=== PATIENT | male | born 1960 | race Caucasian/White ===

== ENCOUNTER → 2021-05-22 17:32 | Outpatient (CLI) | payer OTHER, SELFPAY ==
[2021-05-22 18:08] LABS: COVID19 -Nasal RAPID POSITIVE (Negative)
== END ==
PROVIDERS: PCP Family Medicine; Referring Provider Nurse Practitioner Family; Visit Provider Nurse Practitioner Family
DX: U07.1 COVID-19 (principal)
CPT/HCPCS: 87635

== ENCOUNTER → 2021-05-31 07:51 | Outpatient (CLI) | payer OTHER, SELFPAY ==
[2021-05-31 09:04] LABS: Add Manual Diff / Slide Review NO; Basophils Absolute Auto 0 /uL (0-100); Basophils Percent Auto 0.2 % (0-2); Eosinophils Absolute Auto 200 /uL (0-450); Eosinophils Percent Auto 1.7 % (2-4); Hematocrit 48.1 % (41-53); Hemoglobin 16.1 g/dL (13.5-17.5); Lymphocytes Absolute Auto 5300 /uL (1100-4500); Lymphocytes Percent Auto 55.3 % (25-40); Mean Corpuscular HGB Conc 33.4 % (30-36); Mean Corpuscular Hemoglobin 28.9 PG (26-34); Mean Corpuscular Volume 86.6 fL (80-100); Monocytes Absolute Auto 600 /uL (0-900); Monocytes Percent Auto 6.4 % (3-14); Neutrophils Absolute Auto 3500 /uL (1500-7000); Neutrophils Percent Auto 36.4 % (50-75); Platelet Count 310 X10^3/uL (150-400); Red Blood Cell Count 5.55 X10^6/uL (4.5-5.9); Red Cell Distribution Width 12.7 % (11.6-14.8); White Blood Cell Count 9.6 X10^3/uL (4.5-11.0)
[2021-05-31 09:08] LABS: Hemoglobin A1C% w Est Avg Glu 5.5 % (4.0-6.0)
[2021-05-31 09:51] LABS: Alanine Aminotransferase 35 IU/L (<50); Albumin 3.9 g/dL (3.5-5.0); Albumin Globulin Ratio 1.5 (1.0-2.8); Alkaline Phosphatase 90 U/L (38-126); Aspartate Aminotransferase 27 IU/L (17-59); BUN Creatinine Ratio 16.3 (6-22); Bilirubin Total 0.8 mg/dL (0.2-1.3); Blood Urea Nitrogen 16 mg/dL (9-20); Calcium 9.3 mg/dL (8.4-10.2); Carbon Dioxide 30 mmol/L (22-32); Chloride 105 mmol/L (98-107); Cholesterol 125 mg/dL (140-199); Estimated Glomerular Filt Rate > 60.0 mL/min (>60); Globulin 2.6 g/dL (1.7-4.1); Glucose 94 mg/dL (80-110); HDL Cholesterol 22 mg/dL (40-60); HEMOLYSIS < 15 (0-50); LDL Cholesterol Calculated 71 mg/dL (<100); Potassium 5.2 mmol/L (3.4-5.1); Sodium 141 mmol/L (137-145); Total Protein 6.5 g/dL (6.3-8.2); Triglycerides 162 mg/dL (35-150)
[2021-06-04 07:44] LABS: Percent Free Testosterone 2.53 % (1.50-4.20); Testosterone Free 15.15 ng/dL (5.00-21.00); Testosterone Total 598.7 ng/dL (264.0-916.0)
== END ==
PROVIDERS: PCP Family Medicine; Referring Provider Family Medicine; Visit Provider Family Medicine
DX: E78.2 Mixed hyperlipidemia (principal); G47.33 Obstructive sleep apnea (adult) (pediatric); I25.10 Atherosclerotic heart disease of native coronary artery without angina pectoris; Z12.5 Encounter for screening for malignant neoplasm of prostate; Z95.5 Presence of coronary angioplasty implant and graft; R79.89 Other specified abnormal findings of blood chemistry
CPT/HCPCS: 36415; 80053; 80061; 83036; 84402; 84403; 85025; G0103

== ENCOUNTER → 2024-01-14 11:21 | Outpatient (CLI) | payer MEDICARE, OTHER, SELFPAY ==
[2024-01-14 12:46] LABS: Add Manual Diff / Slide Review NO; Basophils Absolute Auto 0 /uL (0-100); Basophils Percent Auto 0.4 % (0-2); Eosinophils Absolute Auto 200 /uL (0-450); Eosinophils Percent Auto 2.3 % (2-4); Hematocrit 48.1 % (41-53); Hemoglobin 16.7 g/dL (13.5-17.5); Lymphocytes Absolute Auto 5900 /uL (1100-4500); Lymphocytes Percent Auto 64.7 % (25-40); Mean Corpuscular HGB Conc 34.7 % (30-36); Mean Corpuscular Hemoglobin 29.6 PG (26-34); Mean Corpuscular Volume 85.4 fL (80-100); Monocytes Absolute Auto 500 /uL (0-900); Monocytes Percent Auto 5.3 % (3-14); Neutrophils Absolute Auto 2500 /uL (1500-7000); Neutrophils Percent Auto 27.3 % (50-75); Platelet Count 224 X10^3/uL (150-400); Red Blood Cell Count 5.63 X10^6/uL (4.5-5.9); Red Cell Distribution Width 13.4 % (11.6-14.8); White Blood Cell Count 9.2 X10^3/uL (4.5-11.0)
[2024-01-14 13:00] LABS: HEMOLYSIS < 15 (0-50); Iron 145 ug/dL (49-181)
[2024-01-14 13:05] LABS: Alanine Aminotransferase 26 IU/L (<50); Albumin 4.1 g/dL (3.5-5.0); Albumin Globulin Ratio 1.6 (1.0-2.8); Alkaline Phosphatase 63 U/L (38-126); Aspartate Aminotransferase 22 IU/L (17-59); BUN Creatinine Ratio 19.5 (6-22); Blood Urea Nitrogen 17 mg/dL (9-20); Calcium 8.8 mg/dL (8.4-10.2); Carbon Dioxide 23 mmol/L (22-32); Chloride 111 mmol/L (98-107); Cholesterol 179 mg/dL (140-199); Estimated Glomerular Filt Rate > 60 mL/min (>60); Globulin 2.5 g/dL (1.7-4.1); Glucose 93 mg/dL (80-110); HDL Cholesterol 30 mg/dL (40-60); HEMOLYSIS < 15 (0-50); LDL Cholesterol Calculated 103 mg/dL (<100); Potassium 4.1 mmol/L (3.4-5.1); Sodium 141 mmol/L (137-145); Total Protein 6.6 g/dL (6.3-8.2); Triglycerides 232 mg/dL (35-150)
[2024-01-14 13:11] LABS: Percent Iron Saturation 42 % (20-50); Total Iron Binding Capacity 347 ug/dL (261-462); Transferrin 268 mg/dL (206-381)
[2024-01-14 13:31] LABS: TSH w/ Reflex to FT4 1.17 uIU/mL (0.47-4.68)
[2024-01-14 13:51] LABS: Vitamin B12 344 pg/mL (239-931)
== END ==
PROVIDERS: PCP Family Medicine; Referring Provider Physician Assistant; Visit Provider Physician Assistant
DX: E78.5 Hyperlipidemia, unspecified (principal); I25.10 Atherosclerotic heart disease of native coronary artery without angina pectoris; G47.33 Obstructive sleep apnea (adult) (pediatric); R53.83 Other fatigue; Z12.5 Encounter for screening for malignant neoplasm of prostate; Z95.5 Presence of coronary angioplasty implant and graft
CPT/HCPCS: 36415; 80053; 80061; 82607; 83540; 83550; 84402; 84403; 84443; 85025; G0103

== ENCOUNTER → 2024-01-21 11:52 | Outpatient (CLI) | payer MEDICARE, OTHER, SELFPAY ==
--- NOTE | 2024-01-21 11:53 | DI.US.S_ITS ---
PROCEDURE: US CAROTID DOPPLER BI INDICATIONS: CAD TECHNIQUE: Color and pulse Doppler interrogation was performed of both carotid systems, with image documentation and velocity measurements. COMPARISON: None. FINDINGS: Stenosis calculations are based on SRU (Society of Radi[employer] in Ultrasound) criteria. Right side: Brachial blood pressure: 129/78 mm Hg. Common carotid artery peak systolic velocity: 106 cm/sec. Internal carotid artery peak systolic velocity: 107 cm/sec. Internal carotid artery end diastolic velocity: 17 cm/sec. External carotid artery peak systolic velocity: 109 cm/sec. ICA/CCA peak systolic ratio: 1.0. Villalba scale imaging description: Mild atheromatous plaque at the carotid bifurcation. Percent internal carotid artery stenosis: Less than 50% stenosis. Vertebral artery: Flow direction is antegrade. Left side: Brachial blood pressure: 127/74 mm Hg. Common carotid artery peak systolic velocity: 92 cm/sec. Internal carotid artery peak systolic velocity: 82 cm/sec. Internal carotid artery end diastolic velocity: 27 cm/sec. External carotid artery peak systolic velocity: 109 cm/sec. ICA/CCA peak systolic ratio: 0.7. Villalba scale imaging description: Mild atheromatous plaque at the carotid bifurcation Percent internal carotid artery stenosis: Less than 50% stenosis. Vertebral artery: Flow direction is antegrade. IMPRESSION: Less than 50% stenosis of the bilateral internal carotid arteries. Dictated by: Farnaz Blackburn M.D. on 01/21/2024 at 12:40 Approved by: Farnaz Blackburn M.D. on 01/21/2024 at 12:45
== END ==
PROVIDERS: PCP Family Medicine; Referring Provider Physician Assistant; Visit Provider Physician Assistant
DX: I25.10 Atherosclerotic heart disease of native coronary artery without angina pectoris (principal); I65.23 Occlusion and stenosis of bilateral carotid arteries; R53.83 Other fatigue; E78.5 Hyperlipidemia, unspecified; Z95.5 Presence of coronary angioplasty implant and graft
CPT/HCPCS: 93880

== ENCOUNTER 2024-04-19 13:34 | Day surgery (SDC) | payer MEDICARE, OTHER, SELFPAY ==
[2024-04-19] MEDS: LACTATED RINGERS 1,000 ML 42 ML IV (14:08)
[2024-04-19 14:18] VITALS: BP 140/86; PULSE 84; RESP 17; TEMP 35.8; O2SAT 95
--- NOTE | 2024-04-19 15:08 | PM.HP.1 ---
History of Present Illness History of Present Illness Date Patient Seen: 04/19/24 Time Patient Seen: 15:08 Chief complaint: Colonoscopy Narrative: 64-year-old man here for screening colonoscopy. Last colonoscopy 2012. No family history of colon cancer. No abdominal concerns today. [facility] Medical History Erectile dysfunction COVID-19 Somatic dysfunction of lower extremity Acute pain of left knee Obstructive sleep apnea Hyperlipidemia Presence of stent in coronary artery in patient with coronary artery disease Social History Smoking Status: Never smoker alcohol intake: current Meds Home Medications and Allergies Home Medications Medication Instructions Recorded Confirmed Type aspirin 81 mg tablet,delayed 81 mg PO DAILY 03/07/21 04/19/24 History release (Adult Low Dose Aspirin) atorvastatin 80 mg tablet 80 mg PO DAILY 05/22/21 04/19/24 History magnesium 100 mg tablet 100 mg PO DAILY 01/14/24 04/19/24 History Allergies Allergy/AdvReac Type Severity Reaction Status Date / Time No Known Drug Allergies Allergy Verified 04/19/24 14:09 Exam Vital Signs (past 8 hours): - 04/19/24 14:18 Temperature 96.5 F L Pulse Rate 84 Respiratory Rate 17 Blood Pressure 140/86 Pulse Oximetry 95 Oxygen Delivery Method Room Air Oxygen Delivery Method Room Air Narrative Exam Narrative: General adult man alert oriented no acute distress Chest nonlabored respiration Extremities warm well perfused Assessment & Plan Assessment & Plan narrative: The patient requires colorectal screening and colonoscopy is recommended. Technical details were discussed. Risks, benefits, alternatives explained. Risks including but not limited to myocardial infarction, aspiration, bleeding, pain, missed lesion, incomplete examination, need for further radiographic studies, intestinal injury, and need for major abdominal surgery were discussed. All questions were answered to their satisfaction, and they are in agreement with this plan. Time-Based Coding :: [TOTAL MINUTES] spent with patient and on the chart (including review of chart, obtaining history, exam, reviewing outside data, placing orders, documenting exam and treatment plan, and counseling patient) on [DATE].
[2024-04-19 15:29] VITALS: BP 112/52; PULSE 70; RESP 14; TEMP 36.4; O2SAT 94
[2024-04-19 15:34] VITALS: BP 112/65; PULSE 68; RESP 15; TEMP 36.4; O2SAT 95
--- NOTE | 2024-04-19 15:34 | P.OP.COLON_ITS ---
Operative Date/Time/Diagnoses Date of procedure: 04/19/24 Time of procedure: 15:34 Pre-op diagnosis: Screening colonoscopy Procedure & Clinicians Study performed: Screening colonoscopy Same procedure as scheduled: Yes Indications: Screening Surgeon: Murray Seaman Procedure Notes Procedure in detail: The history and physical was performed/updated and the patient is ASA class is 2. The procedure was discussed in detail with the patient. Potential risks complications including infection, bleeding, missed diagnosis, perforation, need for surgery, and were explained. Their questions were answered and informed consent was obtained. Patient was brought to the procedure room and placed standard monitoring equipment. The patient's vital signs were monitored continuously throughout the entire procedure. Prior to starting time-out was performed. The patient was placed in the left lateral recumbent position. Procedural sedation was administered by anesthesia. Examination began with a thorough inspection of the perianal area there was no evidence of fissures, fistulae, external hemorrhoids or cutaneous malignancy. The colonoscopy scope was then placed into the anal canal and was advanced to the cecum, which was identified by the ileocecal valve , the appendiceal orifice and the confluence of the taenia. The scope was then slowly withdrawn examining colon thoroughly in all directions, irrigating it of any residual stool. The scope was retroflexed within the rectum The patient tolerated the procedure well. They will be discharged once criteria are met. The prep was of good/excellent quality. The withdrawl time was 7 minutes. FINDINGS * Unremarkable colonoscopy. Normal healthy colonic mucosa without mass or polyps. Specimen(s): none sent Post-procedure Recommendations: Colonoscopy in 10 years Disposition: same day surgery
[2024-04-19 15:40] VITALS: BP 115/69; PULSE 70; RESP 18; TEMP 36.3; O2SAT 97
== END 2024-04-19 15:53 | disposition home or self-care (01) ==
PROVIDERS: PCP Family Medicine; Referring Provider Surgery; Visit Provider Surgery
PROC: 0DJD8ZZ Inspection of Lower Intestinal Tract, Via Natural or Artificial Opening Endoscopic (ICD-10-PCS; CPT 45378; principal; 2024-04-19 15:00)
DX: Z12.11 Encounter for screening for malignant neoplasm of colon (principal)
CPT/HCPCS: G0121; J2704

== ENCOUNTER → 2024-11-24 09:46 | Outpatient (CLI) | payer MEDICARE, OTHER, SELFPAY ==
[2024-11-24 12:48] LABS: Alanine Aminotransferase 25 IU/L (<50); Albumin 3.8 g/dL (3.5-5.0); Albumin Globulin Ratio 1.6 (1.0-2.8); Alkaline Phosphatase 56 U/L (38-126); Aspartate Aminotransferase 22 IU/L (17-59); Bilirubin Total 0.9 mg/dL (0.2-1.3); Blood Urea Nitrogen 13 mg/dL (9-20); Calcium 8.9 mg/dL (8.4-10.2); Carbon Dioxide 24 mmol/L (22-32); Chloride 107 mmol/L (98-107); Cholesterol 178 mg/dL (140-199); Estimated Glomerular Filt Rate > 60 mL/min (>60); Globulin 2.4 g/dL (1.7-4.1); Glucose 95 mg/dL (80-110); HDL Cholesterol 27 mg/dL (40-60); HEMOLYSIS < 15 (0-50); LDL Cholesterol Calculated 110 mg/dL (<100); Potassium 4.4 mmol/L (3.4-5.1); Sodium 137 mmol/L (137-145); Total Protein 6.2 g/dL (6.3-8.2); Triglycerides 204 mg/dL (35-150)
== END ==
PROVIDERS: PCP Family Medicine; Referring Provider Nurse Practitioner; Visit Provider Nurse Practitioner
DX: E78.5 Hyperlipidemia, unspecified (principal); E87.5 Hyperkalemia
CPT/HCPCS: 36415; 80053; 80061

== ENCOUNTER → 2025-05-05 09:31 | Outpatient (CLI) | payer MEDICARE, OTHER, SELFPAY ==
[2025-05-05 10:11] LABS: Add Manual Diff / Slide Review NO; Hematocrit 49.9 % (41-53); Hemoglobin 16.9 g/dL (13.5-17.5); Lymphocytes Absolute Auto 5800 /uL (1100-4500); Mean Corpuscular HGB Conc 33.9 % (30-36); Mean Corpuscular Hemoglobin 28.0 PG (26-34); Mean Corpuscular Volume 82.6 fL (80-100); Platelet Count 223 X10^3/uL (150-400)
[2025-05-05 10:40] LABS: Alanine Aminotransferase 18 IU/L (<50); Albumin 3.9 g/dL (3.5-5.0); Albumin Globulin Ratio 1.4 (1.0-2.8); Alkaline Phosphatase 86 U/L (38-126); Blood Urea Nitrogen 18 mg/dL (9-20); Calcium 9.3 mg/dL (8.4-10.2); Carbon Dioxide 23 mmol/L (22-32); Chloride 107 mmol/L (98-107); Cholesterol 94 mg/dL (140-199); Estimated Glomerular Filt Rate > 60 mL/min (>60); Globulin 2.7 g/dL (1.7-4.1); Glucose 103 mg/dL (70-99); HDL Cholesterol 27 mg/dL (40-60); HEMOLYSIS < 15 (0-50); Potassium 4.5 mmol/L (3.4-5.1); Sodium 138 mmol/L (137-145); Total Protein 6.6 g/dL (6.3-8.2); Triglycerides 165 mg/dL (35-150)
[2025-05-05 11:06] LABS: TSH w/ Reflex to FT4 1.66 uIU/mL (0.47-4.68)
[2025-05-05 11:08] LABS: Microalbumi Creatinin Ratio Ur 3.0 ug/mg CR (<30)
[2025-05-05 13:21] LABS: RBC Morphology Normal Morphology
== END ==
LOC: LAB 09:38
PROVIDERS: PCP Family Medicine; Referring Provider Family Medicine; Visit Provider Family Medicine
DX: E78.2 Mixed hyperlipidemia (principal); Z12.5 Encounter for screening for malignant neoplasm of prostate; I73.9 Peripheral vascular disease, unspecified; I25.10 Atherosclerotic heart disease of native coronary artery without angina pectoris; Z95.1 Presence of aortocoronary bypass graft; Z95.5 Presence of coronary angioplasty implant and graft
CPT/HCPCS: 36415; 80053; 80061; 82043; 82570; 84443; 85025; G0103

== ENCOUNTER → 2025-05-10 10:20 | Outpatient (CLI) | payer MEDICARE, OTHER, SELFPAY ==
--- NOTE | 2025-05-10 10:21 | DI.CT.S_ITS ---
PROCEDURE: CT ANGIO ABD AORTA RUNOFF INDICATIONS: ATHEROSCLEROSIS OF [place] ARTERIES OF EXTREMETIES TECHNIQUE: After the administration of intravenous contrast, 2.5 mm sections acquired from T12 to the feet, with optional delayed image acquisition from the knees to the feet. 3-dimensional maximum intensity projection (MIP) coronal and sagittal reformats, and/or 3-dimensional volume rendering reformatting was then performed. For radiation dose reduction, the following was used: automated exposure control. COMPARISON: None. FINDINGS: Image Quality: Mildly suboptimal due to motion artifact. Abdominal aorta: Mild atherosclerotic disease without significant stenosis. Splanchnic vessels: Narrowing of the celiac axis with mild poststenotic fusiform dilation, measuring 8 mm. Right lower extremity: Short segment of less than 25% narrowing of the distal external iliac artery. Long segment of 25-50% narrowing of the common femoral artery. Greater than 75% narrowing of the proximal superficial femoral artery, with occlusion disc distal to this region, with bulky calcifications extending to the distal femoral artery. There is reconstitution of the distal femoral artery from deep perforating vessels, with 25% to 50% narrowing extending into the popliteal fossa. Less than 25% narrowing, tandem, long segments of the popliteal artery. Extensive calcifications of the posterior tibial artery. Three-vessel runoff. Left lower extremity: Moderate segment 25% narrowing of the distal external iliac artery. Long segment of 50-75% narrowing of the common femoral artery. Early occlusion of the superficial femoral artery, with reconstitution in the distal segment. Tandem, short segments of less than 25% narrowing of the popliteal artery. Extensive atherosclerotic calcifications of the posterior tibial artery, which is patent at the ankle. Remaining calf vessels are patent. Lower Chest: No significant findings. ABDOMEN: Liver: No solid mass. Gallbladder: No radiopaque gallstones or wall thickening. Biliary ducts: No biliary dilation. Pancreas: No ductal dilation. Spleen: Size is within normal limits. Adrenal Glands: No adrenal nodules. Kidneys and Ureters: No hydronephrosis. No solid mass. No complex renal cystic lesion which requires follow up. Stomach and Bowel: Normal colonic caliber, without significant wall thickening. Colonic diverticulosis without evidence of diverticulitis. Peritoneum: No abnormal intraperitoneal fluid. No free air. Ventral Wall: No hernia. Abdominal Nodes: No retroperitoneal or mesenteric adenopathy by size criteria. Vessels: Aorta and inferior vena cava are normal in size. PELVIS: Pelvic Organs: Prostate is enlarged. Bladder: Unremarkable. Pelvic Nodes: No enlarged lymph nodes. Miscellaneous: Moderate inguinal hernias containing fat. Bones: No aggressive osseous abnormality. IMPRESSION: Extensive atherosclerotic disease: On the right, there is occlusion of the proximal superficial femoral artery, with reconstitution at the distal superficial femoral artery from deep perforating vessels. Three-vessel runoff. On the left, there is occlusion of the proximal superficial femoral artery, with reconstitution of the distal superficial femoral artery from deep perforating vessels. The posterior tibial artery contains heavy calcifications, but is patent at the ankle. Remaining calf vessels are patent at the ankle. Bulky calcification of the distal external iliac artery/common femoral artery, left greater than right. 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 Correlate with symptoms. Dictated by: Gordon Jones M.D. on 05/10/2025 at 11:39 Approved by: Gordon Jones M.D. on 05/10/2025 at 11:53
== END ==
LOC: CT 10:21
PROVIDERS: PCP Family Medicine; Referring Provider Surgery Vascular Surgery; Visit Provider Surgery Vascular Surgery
DX: I70.213 Atherosclerosis of native arteries of extremities with intermittent claudication, bilateral legs (principal); K57.90 Diverticulosis of intestine, part unspecified, without perforation or abscess without bleeding; N40.0 Benign prostatic hyperplasia without lower urinary tract symptoms; K40.90 Unilateral inguinal hernia, without obstruction or gangrene, not specified as recurrent
CPT/HCPCS: 75635; Q9967

== ENCOUNTER 2025-07-09 21:46 | Emergency (ER) | payer MEDICARE, OTHER, SELFPAY ==
[2025-07-09 21:59] VITALS: PULSE 94; RESP 17; O2SAT 96
[2025-07-09 22:00] VITALS: BP 120/69; PULSE 93; RESP 24; O2SAT 95
[2025-07-09 22:02] VITALS: BP 135/65; PULSE 96; RESP 16; TEMP 38; O2SAT 96; BMI 31.5
--- NOTE | 2025-07-09 22:13 | DI.US.S_ITS ---
PROCEDURE: US PERIPH VENOUS LOW EXTREM RT INDICATIONS: RLE pain/swelling, recent bilat fem-pop TECHNIQUE: Real-time imaging, as well as color and pulse Doppler interrogation, were performed of the lower extremity deep veins from the inguinal ligament to the popliteal fossa, with documentation of the visualized calf veins. COMPARISON: [facility], CT, CT ANGIO ABD AORTA RUNOFF, 05/10/2025, 10:32. FINDINGS: The common femoral, femoral, popliteal, and the visualized calf veins are normally compressible, and free of intraluminal thrombus. Color and pulse Doppler demonstrate normal phasic intraluminal flow. There is normal augmentation response to distal compression maneuver. Fluid collection posterior to the bypass scar measuring approximately 10.6 cm. Bypass appears patent. IMPRESSION: No findings of lower extremity deep venous thrombosis. Fluid collection posterior to bypass scar. This may represent hematoma or potentially abscess. Dictated by: Cheli Ray M.D. on 07/09/2025 at 23:08 Approved by: Cheli Ray M.D. on 07/09/2025 at 23:12
[2025-07-09 22:24] LABS: Add Manual Diff / Slide Review NO; Hematocrit 37.1 % (41-53); Hemoglobin 12.4 g/dL (13.5-17.5); Lymphocytes Absolute Auto 2700 /uL (1100-4500); Mean Corpuscular HGB Conc 33.4 % (30-36); Mean Corpuscular Hemoglobin 26.8 PG (26-34); Mean Corpuscular Volume 80.2 fL (80-100); Platelet Count 319 X10^3/uL (150-400)
[2025-07-09 22:29] LABS: INR 1.1 (0.9-1.3); Prothrombin Time 12.2 SECONDS (9.4-12.5)
[2025-07-09 22:35] LABS: Alanine Aminotransferase 19 IU/L (<50); Albumin 3.7 g/dL (3.5-5.0); Albumin Globulin Ratio 1.3 (1.0-2.8); Alkaline Phosphatase 94 U/L (38-126); Blood Urea Nitrogen 13 mg/dL (9-20); Calcium 8.6 mg/dL (8.4-10.2); Carbon Dioxide 21 mmol/L (22-32); Chloride 108 mmol/L (98-107); Estimated Glomerular Filt Rate > 60 mL/min (>60); Globulin 2.8 g/dL (1.7-4.1); Glucose 146 mg/dL (70-99); HEMOLYSIS < 15 (0-50); Lactate (Lactic Acid) 1.4 mmol/L (0.7-2.1); Potassium 3.8 mmol/L (3.4-5.1); Sodium 139 mmol/L (137-145); Total Protein 6.5 g/dL (6.3-8.2)
[2025-07-09 23:00] VITALS: BP 124/63; PULSE 86; RESP 16; O2SAT 96
[2025-07-09] MEDS: VANCOMYCIN 2,000 MG/400 ML PIGGYBACK 200 MG IV (23:02)
--- NOTE | 2025-07-09 23:02 | ED.EXTPRO ---
HPI - Extremity Problem General Chief complaint: Extremity Problem,Nontraumatic Stated complaint: post op rt leg problems Time Seen by Provider: 07/09/25 21:48 Source: patient Mode of arrival: Wheelchair History of Present Illness HPI Narrative: 65-year-old male with CAD status post CABG, history of PAD status post left then right femoral artery bypass grafting, complains of three days duration right thigh pain and swelling, feeling feverish tonight. Patient recalls 4 vessel CABG procedure done in [place] December 2024, during post-CABG cardiac rehab developed bilateral calf pain, had podiatry consultation, suspected PAD, referred to vascular surgery, CTA showed bilateral femoral artery occlusions, on 05/22/2025 had left fem-bypass arterial procedure [place] Dr. Rios Pruitt vascular surgeon, had 06/23/2025 right fem-bypass same surgeon. He recalls having a left-sided large hematoma that was treated medically, never drained, resorbed. He now has 3 days duration of similar swelling to the right distal graft, not quite as big as his left-sided hematoma, but more painful, having chills and fever 9:00 p.m. tonight. Denies chest pain shortness of breath. Not currently on antibiotics. Had previously been on Eliquis which had been held, was due to start Pradaxa oral anticoagulation soon. Denies trauma new activities, rehab exercises have been largely upper extremity oriented. Local PCP Dr Garcia. Related Data Home Medications ?Medication ?Instructions ?Recorded ?Confirmed aspirin 81 mg tablet,delayed 81 mg PO DAILY 03/07/21 05/16/25 release (Adult Low Dose Aspirin) magnesium 100 mg tablet 100 mg PO DAILY 01/14/24 05/16/25 apixaban 5 mg tablet 5 mg PO BID 04/13/25 05/16/25 atorvastatin 40 mg tablet 40 mg PO DAILY 04/13/25 05/16/25 cholecalciferol (vitamin D3) 125 125 mcg PO DAILY 04/13/25 05/16/25 mcg (5,000 unit) capsule cyanocobalamin (vitamin B-12) 1,000 mcg PO DAILY 04/13/25 05/16/25 1,000 mcg tablet ezetimibe 10 mg tablet 10 mg PO DAILY 04/13/25 05/16/25 metoprolol tartrate 25 mg tablet 25 mg PO BID 04/13/25 05/16/25 Previous Rx's ?Medication ?Instructions ?Recorded nitroglycerin 0.4 mg sublingual 0.4 mg sublingual Q5M PRN chest 04/13/25 tablet pain #30 tabs cephalexin 500 mg capsule 500 mg PO QID 7 days #28 caps 07/10/25 cephalexin 500 mg capsule 500 mg PO QID 7 days #28 caps 07/10/25 oxycodone-acetaminophen 5 mg-325 1 tab PO Q6H PRN pain #10 tabs 07/10/25 mg tablet Allergies Allergy/AdvReac Type Severity Reaction Status Date / Time No Known Drug Allergies Allergy Verified 07/09/25 22:02 Patient History Medical History (Updated 07/10/25 @ 01:46 by Stefan Miller MD) Atrial fibrillation with RVR Pulmonary emboli Peripheral vascular disease of extremity with claudication Erectile dysfunction COVID-19 Somatic dysfunction of lower extremity Acute pain of left knee Obstructive sleep apnea Hyperlipidemia Presence of stent in coronary artery in patient with coronary artery disease Social History Smoking Status: Never smoker alcohol intake: current Smoking Status: Never smoker alcohol intake frequency: a few times a month Exam Narrative Exam Narrative: GENERAL: Well-developed patient, in mild distress. HEAD: Atraumatic. Normocephalic. EYES: Pupils equal round. Extraocular motions intact. No scleral icterus. No injection or drainage. ENT: Nose without bleeding, purulent drainage. Throat without erythema, tonsillar hypertrophy or exudate. Airway patent. NECK: Trachea midline. Moves neck well. CARDIOVASCULAR: Regular rate and rhythm without murmurs, gallops, or rubs. RESPIRATORY: Clear to auscultation. Breath sounds equal bilaterally. No wheezes, rales, or rhonchi. GASTROINTESTINAL: Abdomen soft, non-tender, nondistended. EXTREMITIES: Healing scars left groin and left medial thigh, without redness or warmth. Healing scars right groin and right medial thigh with some swelling non fluctuance noncrepitant, slight warmth. No expressible fluid. DP pulses palpable distal, with good perfusion bilateral toes. BACK: Nontender without deformity or crepitance. No flank tenderness. NEURO: AOx3. Motor functions grossly nonfocal. SKIN: No rash or erythema of visible areas Initial Vital Signs Initial Vital Signs: Vital Signs Pulse Rate 94 H 07/09/25 21:59 Respiratory Rate 17 07/09/25 21:59 Pulse Oximetry 96 07/09/25 21:59 Course Orders Ordered: ED Orders 07/09/25 22:10 CBC Auto Diff [Complete Blood Count AUTO DIFF] Stat CMP [Comprehensive Metabolic Panel] Stat Lactate (Lactic Acid) Stat Prothrombin Time INR Stat 07/09/25 22:13 US periph venous low extrem rt Stat 07/09/25 22:15 Blood Culture Stat 07/09/25 23:19 CT angio abd aorta runoff Stat Discontinued Medications Hydromorphone HCl (Hydromorphone Hcl 0.5 Mg/0.5 Ml Syringe) 0.5 mg IV NOW ONE Stop: 07/09/25 23:54 Last Admin: 07/10/25 00:02 Dose: 0.5 mg Documented By: ANGELIA Vancomycin HCl/Dextrose (Vancomycin) 2,000 mg in 400 mls @ 200 mls/hr IV NOW ONE Stop: 07/10/25 00:33 Last Infusion: 07/10/25 01:25 Dose: Infused Documented By: Admin: 07/09/25 23:02 Dose: 200 mls/hr Documented By: LOLITA Sodium Chloride (Normal Saline 0.9%) 1,000 mls @ 1,000 mls/hr IV BOLUS ONE Stop: 07/10/25 00:18 Last Infusion: 07/10/25 01:24 Dose: Infused Documented By: Admin: 07/09/25 23:39 Dose: 1,000 mls/hr Documented By: ANGELIA Ondansetron HCl (Ondansetron 4 Mg/2 Ml Inj) 4 mg IV NOW ONE Stop: 07/09/25 23:55 Last Admin: 07/10/25 00:02 Dose: 4 mg Documented By: ANGELIA Oxycodone/Acetaminophen (Oxycodone/Apap 5/325 Prepack) 1 bottle MISC DIRECTED ONE Stop: 07/10/25 02:06 Last Admin: 07/10/25 02:08 Dose: 1 bottle Documented By: ANGELIA Oxycodone/Acetaminophen (Oxycodone/Acetaminophen 5/325 Tablet) 1 tab PO NOW ONE Stop: 07/10/25 02:06 Last Admin: 07/10/25 02:08 Dose: 1 tab Documented By: ANGELIA Vital Signs Vital signs: Vital Signs - 8 hr 07/09/25 21:59 07/09/25 22:00 07/09/25 22:00 Temperature Pulse Rate 94 H 93 H Respiratory Rate 17 24 Blood Pressure 120/69 Pulse Oximetry 96 95 Oxygen Delivery Method Room Air 07/09/25 22:02 07/09/25 23:00 07/09/25 23:00 Temperature 100.4 F H Pulse Rate 96 H 86 Respiratory Rate 16 16 Blood Pressure 135/65 124/63 Pulse Oximetry 96 96 Oxygen Delivery Method Room Air Room Air 07/09/25 23:30 07/09/25 23:30 07/09/25 23:46 Temperature Pulse Rate 83 Respiratory Rate 23 Blood Pressure 110/58 L 121/61 Pulse Oximetry 96 Oxygen Delivery Method Room Air 07/09/25 23:46 07/10/25 00:00 07/10/25 00:00 Temperature Pulse Rate 84 81 Respiratory Rate 25 H Blood Pressure 120/61 Pulse Oximetry 95 95 Oxygen Delivery Method Room Air 07/10/25 00:30 07/10/25 00:31 07/10/25 00:31 Temperature Pulse Rate 78 78 Respiratory Rate 24 24 Blood Pressure 103/54 L Pulse Oximetry 92 93 Oxygen Delivery Method 07/10/25 01:00 07/10/25 01:00 07/10/25 01:30 Temperature 98.6 F Pulse Rate 77 Respiratory Rate 20 Blood Pressure 108/59 L 104/50 L Pulse Oximetry 92 Oxygen Delivery Method Room Air 07/10/25 01:30 Temperature Pulse Rate 79 Respiratory Rate 24 Blood Pressure Pulse Oximetry 94 Oxygen Delivery Method Room Air MDM - Extremity (Nontraumatic) Lab Data Attestation: I reviewed the patient's lab results. Lab results narrative: White blood cell count 23329, hemoglobin 12.4, platelets adequate. Glucose 146. Renal function normal. Electrolytes normal. Serum CO2 21 slightly decreased. Liver functions normal. Lactate normal. 07/09/25 22:10 07/09/25 22:10 Labs: Lab Results 07/09/25 Range/Units 22:10 WBC 12.0 H (4.5-11.0) X10^3/uL RBC 4.62 (4.5-5.9) X10^6/uL Hgb 12.4 L (13.5-17.5) g/dL Hct 37.1 L (41-53) % MCV 80.2 (80-100) fL MCH 26.8 (26-34) PG MCHC 33.4 (30-36) % RDW 14.1 (11.6-14.8) % Plt Count 319 (150-400) X10^3/uL Neut % (Auto) 67.5 (50-75) % Lymph % (Auto) 22.7 L (25-40) % [place] % (Auto) 7.4 (3-14) % Eos % (Auto) 1.8 L (2-4) % Baso % (Auto) 0.6 (0-2) % Neut # (Auto) 8100 H (7401-3977) /uL Lymph # (Auto) 2700 (4336-7253) /uL [place] # (Auto) 900 (0-900) /uL Eos # (Auto) 200 (0-450) /uL Baso # (Auto) 100 (0-100) /uL PT 12.2 (9.4-12.5) SECONDS INR 1.1 (0.9-1.3) Sodium 139 (137-145) mmol/L Potassium 3.8 (3.4-5.1) mmol/L Chloride 108 H (98-107) mmol/L Carbon Dioxide 21 L (22-32) mmol/L BUN 13 (9-20) mg/dL Creatinine 0.81 (0.66-1.25) mg/dL Estimated GFR > 60 (>60) mL/min BUN/Creatinine Ratio 16.0 (6-22) Glucose 146 H (70-99) mg/dL Lactate 1.4 (0.7-2.1) mmol/L Calcium 8.6 (8.4-10.2) mg/dL Total Bilirubin 0.6 (0.2-1.3) mg/dL AST 22 (17-59) IU/L ALT 19 (<50) IU/L Alkaline Phosphatase 94 (38-126) U/L Total Protein 6.5 (6.3-8.2) g/dL Albumin 3.7 (3.5-5.0) g/dL Globulin 2.8 (1.7-4.1) g/dL Albumin/Globulin Ratio 1.3 (1.0-2.8) Imaging Data CT angiogram aortogram with right lower extremity runoff: Radiologist's Impression: [address] [address] [address] Scan Report Signed Patient: Ananda Zhao MR#: [id number] : 1960 Acct:[id number] Age/Sex: 65 / M Date of Service: 07/09/25 Loc: ED Accession Number: [id number] Procedure: CT angio abd aorta runoff Ordering Provider: Stefan Miller MD PROCEDURE: CT ANGIO ABD AORTA RUNOFF INDICATIONS: RLE infection/fluid on US, recent bypass arterial surgery TECHNIQUE: After the administration of intravenous contrast, 2.5 mm sections acquired from T12 to the feet, with optional delayed image acquisition from the knees to the feet. 3-dimensional maximum intensity projection (MIP) coronal and sagittal reformats, and/or 3-dimensional volume rendering reformatting was then performed. For radiation dose reduction, the following was used: automated exposure control. COMPARISON: [facility], CT, CT ANGIO ABD AORTA RUNOFF, 05/10/2025, 10:32. FINDINGS: Image Quality: Diagnostic. Abdominal aorta: Scattered atherosclerotic changes. No areas of hemodynamically significant stenosis, vascular occlusion or aneurysmal dilation. No dissection. Splanchnic vessels: Patent. Lower extremities: There is interval appearance of bypass stents bilaterally. They appear patent. Atherosclerotic calcification of the [place] vessels. There remains heavily calcified runoff vessels markedly diminutive. Slight appearance of increased flow is identified on the left. Bilateral groin fluid collections are identified presumably at the site of vascular access measuring 4.3 x 3.3 cm on the right and 1.2 x 1.5 cm on the left. There are fluid collections identified along the medial aspect of the right lower extremity immediately superior to the knee joint measuring 4.9 x 5.7 x 11.2 cm. Similar although smaller focus is identified on the left measuring 2.7 x 2.8 x 3.4 cm. All collections are hypodensity without evidence of contrast extravasation. Lower Chest: No significant findings. ABDOMEN: Liver: No solid mass. Gallbladder: No radiopaque gallstones or wall thickening. Biliary ducts: No biliary dilation. Pancreas: No ductal dilation. Spleen: Size is within normal limits. Adrenal Glands: No adrenal nodules. Kidneys and Ureters: No hydronephrosis. No solid mass. No complex renal cystic lesion which requires follow up. Stomach and Bowel: Normal colonic caliber, without significant wall thickening. Minimal colonic diverticula without inflammatory change. Peritoneum: No abnormal intraperitoneal fluid. No free air. Ventral Wall: No hernia. Abdominal Nodes: No retroperitoneal or mesenteric adenopathy by size criteria. Vessels: Aorta and inferior vena cava are normal in size. PELVIS: Pelvic Organs: Prostate gland is enlarged. Bladder: Unremarkable. Pelvic Nodes: No enlarged lymph nodes. Miscellaneous: Bilateral fat containing inguinal hernias are seen. Bones: No aggressive osseous abnormality. IMPRESSION: Interval bypass surgical changes as above. Bilateral fluid collections as described above presumably postsurgical seroma. There is no enhancement. There is no evidence of contrast extravasation to suggest active hemorrhage. Dictated by: Cheli Ray M.D. on 07/10/2025 at 0:15 Approved by: Cheli Ray M.D. on 07/10/2025 at 0:26 Venous Doppler right lower extremity: Radiologist's Impression: [place] [address] Ultrasound Report Signed Patient: Ananda Zhao MR#: [id number] : 1960 Acct:[id number] Age/Sex: 65 / M Date of Service: 07/09/25 Loc: ED Accession Number: [id number] Procedure: perip venous low extrem rt Ordering Provider: Stefan Miller MD PROCEDURE: US PERIPH VENOUS LOW EXTREM RT INDICATIONS: RLE pain/swelling, recent bilat fem-pop TECHNIQUE: Real-time imaging, as well as color and pulse Doppler interrogation, were performed of the lower extremity deep veins from the inguinal ligament to the popliteal fossa, with documentation of the visualized calf veins. COMPARISON: [facility], CT, CT ANGIO ABD AORTA RUNOFF, 05/10/2025, 10:32. FINDINGS: The common femoral, femoral, popliteal, and the visualized calf veins are normally compressible, and free of intraluminal thrombus. Color and pulse Doppler demonstrate normal phasic intraluminal flow. There is normal augmentation response to distal compression maneuver. Fluid collection posterior to the bypass scar measuring approximately 10.6 cm. Bypass appears patent. IMPRESSION: No findings of lower extremity deep venous thrombosis. Fluid collection posterior to bypass scar. This may represent hematoma or potentially abscess. Dictated by: Cheli Ray M.D. on 07/09/2025 at 23:08 Approved by: Cheli Ray M.D. on 07/09/2025 at 23:12 [facility] Narrative Medical decision making narrative: 65-year-old male with PAD having left fem bypass procedure May 2025, subsequent seroma treated nonsurgically, early June 2025 right fem bypass procedure, both at [facility] vascular surgery Dr Pruitt, now with nontraumatic pain swelling right thigh surgical site swelling without drainage, feverish with low-grade fever. DDx consider DVT, consider graft infection or deep space infection, seroma, abscess, other. IV vancomycin after blood cultures. Labs pending. Ultrasound right lower extremity ordered. Lab data: White blood cell count 77268, hemoglobin 12.4, platelets adequate. Glucose 146. Renal function normal. Electrolytes normal. Serum CO2 21 slightly decreased. Liver functions normal. Lactate normal. Ultrasound venous Doppler right lower extremity. IMPRESSION: No findings of lower extremity deep venous thrombosis. Fluid collection posterior to bypass scar. This may represent hematoma or potentially abscess. See radiology report. CT angiogram aorta with right lower extremity runoff. IMPRESSION: Interval bypass surgical changes as above. Bilateral fluid collections as described above presumably postsurgical seroma. There is no enhancement. There is no evidence of contrast extravasation to suggest active hemorrhage. See radiology report. Discussion of report results with patient/family, printed report provided. CT angiogram study reassuring, patent arterial vascular grafting, fluid collection characterized likely seroma, not described as suspected abscess changes, without enhancement, no extravasation or active hemorrhage suspected. Will consult with patient's vascular surgeon, to see if oral antibiotics advised, and timing of further postoperative vascular surgery clinic follow up. 0100, vascular surgery [facility] cross cover or Dr. Pruitt to be contacted for disposition planning. 0115, briefly attempted to present case to [facility] vascular surgery on-call Dr. Espino, who stated that they did not cover for the practice of Dr. Pruitt, and to contact Dr. Pruitt directly. 0140, case discussed with Dr. Pruitt who feels patient could be discharged home without any further antibiotics, he will contact the patient to arrange further follow up with him in clinic. Patient requesting pain medications, had been on oxycodone/APAP prior. Oral dose given now, home pack dispensed, prescription sent to requested pharmacy. Did send prescription also for Keflex dose, should patient have phone follow up later today with vascular surgery, perhaps with phone photos of the wound, if they should decide to start antibiotics after all, patient aware agrees with that plan. Discharge Plan Departure Patient Disposition: Home Clinical Impression: Seroma after procedure, Peripheral vascular disease Activity Restrictions/Additional Instructions: History of peripheral artery disease status post bilateral femoral artery bypass surgery by your vascular surgeon [facility]. Prior left-sided swelling treated without surgical interventions, fluid collection resorbed by the body. Now nontraumatic right-sided thigh area swelling of the area of previous surgery for the last 3 days. Feverishness today not otherwise explained. Initial IV vancomycin today given pending workup. Ultrasound did not show blood clots to the venous system of the right lower extremity. CT angiogram of the lower aorta into the pelvis down through the right leg, showed patent grafting, no leaking of blood, and small fluid collection seroma, not described as any abscess. Case was discussed with your vascular surgeon who felt that you did not need further antibiotics at this time. Advised that you follow up with him, he will contact you later today/tomorrow. If you have not heard from him by later today then tomorrow morning consider contacting him directly. He felt that you could start your Plavix anticoagulation medication as planned. Follow up with your vascular surgeon as above. Return to this/nearest emergency department for any change worsening symptoms or any concerns prior. Prescriptions: New oxycodone-acetaminophen 5-325 mg tablet 1 tab PO Q6H PRN (Reason: pain) Qty: 10 0RF cephalexin 500 mg capsule 500 mg PO QID 7 Days Qty: 28 0RF cephalexin 500 mg capsule 500 mg PO QID 7 Days Qty: 28 0RF No Action aspirin [Adult Low Dose Aspirin] 81 mg tablet,delayed release (DR/EC) 81 mg PO DAILY magnesium 100 mg tablet 100 mg PO DAILY atorvastatin 40 mg tablet 40 mg PO DAILY cyanocobalamin (vitamin B-12) 1,000 mcg tablet 1,000 mcg PO DAILY cholecalciferol (vitamin D3) 125 mcg (5,000 unit) capsule 125 mcg PO DAILY ezetimibe 10 mg tablet 10 mg PO DAILY metoprolol tartrate 25 mg tablet 25 mg PO BID apixaban 5 mg tablet 5 mg PO BID nitroglycerin 0.4 mg tablet, sublingual 0.4 mg sublingual Q5M PRN (Reason: chest pain) Qty: 30 3RF Rx Instructions: do not exceed 3 doses per episode Referrals: Jerad Garcia MD [Primary Care Provider, Family Practice] Stand Alone Forms: Patient Portal/API
--- NOTE | 2025-07-09 23:19 | DI.CT.S_ITS ---
PROCEDURE: CT ANGIO ABD AORTA RUNOFF INDICATIONS: RLE infection/fluid on US, recent bypass arterial surgery TECHNIQUE: After the administration of intravenous contrast, 2.5 mm sections acquired from T12 to the feet, with optional delayed image acquisition from the knees to the feet. 3-dimensional maximum intensity projection (MIP) coronal and sagittal reformats, and/or 3-dimensional volume rendering reformatting was then performed. For radiation dose reduction, the following was used: automated exposure control. COMPARISON: [facility], CT, CT ANGIO ABD AORTA RUNOFF, 05/10/2025, 10:32. FINDINGS: Image Quality: Diagnostic. Abdominal aorta: Scattered atherosclerotic changes. No areas of hemodynamically significant stenosis, vascular occlusion or aneurysmal dilation. No dissection. Splanchnic vessels: Patent. Lower extremities: There is interval appearance of bypass stents bilaterally. They appear patent. Atherosclerotic calcification of the redding vessels. There remains heavily calcified runoff vessels markedly diminutive. Slight appearance of increased flow is identified on the left. Bilateral groin fluid collections are identified presumably at the site of vascular access measuring 4.3 x 3.3 cm on the right and 1.2 x 1.5 cm on the left. There are fluid collections identified along the medial aspect of the right lower extremity immediately superior to the knee joint measuring 4.9 x 5.7 x 11.2 cm. Similar although smaller focus is identified on the left measuring 2.7 x 2.8 x 3.4 cm. All collections are hypodensity without evidence of contrast extravasation. Lower Chest: No significant findings. ABDOMEN: Liver: No solid mass. Gallbladder: No radiopaque gallstones or wall thickening. Biliary ducts: No biliary dilation. Pancreas: No ductal dilation. Spleen: Size is within normal limits. Adrenal Glands: No adrenal nodules. Kidneys and Ureters: No hydronephrosis. No solid mass. No complex renal cystic lesion which requires follow up. Stomach and Bowel: Normal colonic caliber, without significant wall thickening. Minimal colonic diverticula without inflammatory change. Peritoneum: No abnormal intraperitoneal fluid. No free air. Ventral Wall: No hernia. Abdominal Nodes: No retroperitoneal or mesenteric adenopathy by size criteria. Vessels: Aorta and inferior vena cava are normal in size. PELVIS: Pelvic Organs: Prostate gland is enlarged. Bladder: Unremarkable. Pelvic Nodes: No enlarged lymph nodes. Miscellaneous: Bilateral fat containing inguinal hernias are seen. Bones: No aggressive osseous abnormality. IMPRESSION: Interval bypass surgical changes as above. Bilateral fluid collections as described above presumably postsurgical seroma. There is no enhancement. There is no evidence of contrast extravasation to suggest active hemorrhage. Dictated by: Cheli Ray M.D. on 07/10/2025 at 0:15 Approved by: Cheli Ray M.D. on 07/10/2025 at 0:26
[2025-07-09 23:30] VITALS: BP 110/58; PULSE 83; RESP 23; O2SAT 96
--- NOTE | 2025-07-09 23:32 | PC.NURSE ---
Pt to imaging via ED stretcher with batch room technician
[2025-07-09] MEDS: SODIUM CHLORIDE 0.9% 1,000 ML 1000 ML IV (23:39)
[2025-07-09 23:46] VITALS: BP 121/61; PULSE 84; O2SAT 95
[2025-07-10] VITALS: BP 120/61; PULSE 81; RESP 25; O2SAT 95
[2025-07-10] MEDS: ONDANSETRON 4 MG/2 ML INJ IV (00:02)
[2025-07-10 00:30] VITALS: PULSE 78; RESP 24; O2SAT 92
[2025-07-10 00:31] VITALS: BP 103/54; PULSE 78; RESP 24; O2SAT 93
[2025-07-10 01:00] VITALS: BP 108/59; PULSE 77; RESP 20; TEMP 37; O2SAT 92
[2025-07-10 01:30] VITALS: BP 104/50; PULSE 79; RESP 24; O2SAT 94
--- NOTE | 2025-07-10 01:54 | PC.NURSE ---
Ambulatory to restroom without difficulty or assistance.
== END 2025-07-10 02:17 | disposition home or self-care (01) ==
PROVIDERS: Emergency Provider Emergency Medicine; PCP Family Medicine
DX: I97.641 Postprocedural seroma of a circulatory system organ or structure following cardiac bypass (principal); I73.9 Peripheral vascular disease, unspecified; I25.10 Atherosclerotic heart disease of native coronary artery without angina pectoris; Z95.1 Presence of aortocoronary bypass graft
CPT/HCPCS: 36415; 75635; 80053; 83605; 85025; 85610; 87040; 93971; 96365; 96366; 96375; 99284; J1171; J2405; J3375; J7030; Q9967